=== PATIENT | male | born 1995 | race Caucasian/White ===

== ENCOUNTER 2020-06-06 19:33 | Emergency (ER) | payer OTHER | END 2020-06-06 20:40 | disposition home or self-care (01) | LOC: FER 19:33 | DX: Z20.2 Contact with and (suspected) exposure to infections with a predominantly sexual mode of transmission (principal) | CPT/HCPCS: 99283; J0696 ==

== ENCOUNTER 2020-08-17 12:58 | Emergency (ER) | payer OTHER | END 2020-08-17 15:28 | disposition home or self-care (01) | LOC: FER 12:58 | DX: M20.012 Mallet finger of left finger(s) (principal); F17.210 Nicotine dependence, cigarettes, uncomplicated | CPT/HCPCS: 73120 ==

== ENCOUNTER 2020-10-13 15:28 | Emergency (ER) | payer OTHER ==
[2020-10-13] MEDS ORDERED: IBUPROFEN800 MG PO (20:28)
== END 2020-10-13 20:57 | disposition home or self-care (01) ==
LOC: FER 15:28
DX: U07.1 COVID-19 (principal)
CPT/HCPCS: 99284; U0002